=== PATIENT | male | born 1965 | race Caucasian/White ===

== ENCOUNTER 2024-04-01 11:08 | Emergency (ER) | payer OTHER ==
[2024-04-01] MEDS: oxyCODONE 5MG TAB PO ONE (12:35)
[2024-04-01 16:47] VITALS: BP 132/64; TEMP 98.2; O2SAT 95
== END 2024-04-01 17:05 | disposition home or self-care (01) ==
LOC: EDBD 11:08 → M ED 11:08
DX: S91.302A Unspecified open wound, left foot, initial encounter (principal); Z45.2 Encounter for adjustment and management of vascular access device; E11.9 Type 2 diabetes mellitus without complications; I10 Essential (primary) hypertension; I25.2 Old myocardial infarction; Z88.0 Allergy status to penicillin; Y92.9 Unspecified place or not applicable; Y93.89 Activity, other specified; Y99.9 Unspecified external cause status